=== PATIENT | male | born 1970 | race Caucasian/White ===

== ENCOUNTER 2020-06-12 11:59 | Inpatient (IN) | payer BC, OTHER ==
[~2020-06-12] VITALS: Ht 167.6 cm; Wt 78.5 kg
--- NOTE | 2020-06-12 14:10 | NUR ---
to room from lobby
[2020-06-12 14:54] LABS: BASOPHILS % (AUTO) 1 % (0-1); EOSINOPHILS % (AUTO) 0 % (1-7); LYMPHOCYTES % (AUTO) 11 % (22-44); MEAN CORPUSCULAR HEMOGLOBIN 28.3 pg (27.5-34.5); MEAN CORPUSCULAR HGB CONC 33.4 g/dL (33.2-36.2); MEAN PLATELET VOLUME 9.5 fL (7.4-10.4); MONOCYTES % (AUTO) 7 % (2-9); NEUTROPHILS % (AUTO) 81 % (42-75); PLATELET COUNT 170 x10^3/uL (130-400); RED BLOOD COUNT 6.25 x10^6/uL (4.38-5.82); RED CELL DISTRIBUTION WIDTH 13.5 % (9.4-14.8)
[2020-06-12 15:02] LABS: ALBUMIN 3.4 g/dL (3.4-5.0); ANION GAP 5 mmol/L (5-15); CALCIUM 8.8 mg/dL (8.5-10.1); CHLORIDE 103 mmol/L (98-107); CREATININE 1.39 mg/dL (0.7-1.3)
[2020-06-12 15:06] LABS: TROPONIN I < 0.015 ng/mL (0.000-0.045)
--- NOTE | 2020-06-12 15:55 | NUR ---
WITH REASSESSMENT POX TO 88% WITH MILD AMBULATION sTANDING AND WALKING TO ROOM'S DOOR. ALSO WITH MILD FEVER AGAIN PROVIDER TO ADMIT POX LOW AND CXR WORRISOME
[2020-06-12] MEDS ORDERED: AZITHROMYCIN 500 MG in SODIUM CHLORIDE 0.9% 250 ML IVPB ONE (16:00)
[2020-06-12] MEDS ORDERED: ACETAMINOPHEN 325 MG TABLET PO ONE (16:00)
[2020-06-12] MEDS ORDERED: CEFTRIAXONE PMX 1GM/50ML 50 ML IVPB ONE (16:00)
[2020-06-12] MEDS ORDERED: DEXAMETHASONE 4 MG/ML, 1ML IVPush ONE (16:00)
[2020-06-12] MEDS ORDERED: DEXAMETHASONE 4 MG/ML, 1ML ONE (16:08)
[2020-06-12] MEDS ORDERED: CEFTRIAXONE PMX 1GM/50ML 50 ML ONE (16:09)
[2020-06-12] MEDS ORDERED: ACETAMINOPHEN 325 MG TABLET ONE (16:09)
[2020-06-12] MEDS ORDERED: SODIUM CHLORIDE FLUSH 10ML SYR IVF PRN (16:30)
--- NOTE | 2020-06-12 16:57 | NUR ---
REPORT TO RACHID BERRY
--- NOTE | 2020-06-12 16:58 | NUR ---
Report received from lara Segovia.
[2020-06-12] MEDS ORDERED: BISACODYL 10 MG SUPP PR PRN (17:00)
[2020-06-12] MEDS ORDERED: ENALAPRILAT 1.25 MG/ML, 2ML IVPush PRN (17:00)
[2020-06-12] MEDS ORDERED: ONDANSETRON ODT 4 MG PO PRN (17:00)
[2020-06-12] MEDS ORDERED: GUAIFENESIN/DM 200-20MG, 10ML UDC PO PRN (17:00)
[2020-06-12] MEDS ORDERED: LABETALOL 5MG/ML, 20ML IVPush PRN (17:00)
[2020-06-12] MEDS ORDERED: CEFTRIAXONE PMX 1GM/50ML 50 ML IVPB SCH (17:00)
[2020-06-12] MEDS ORDERED: ACETAMINOPHEN 325 MG TABLET PO PRN (17:00)
[2020-06-12] MEDS ORDERED: PHARMACY MAY ADJ FOR RENAL FX MC PRN (17:00)
[2020-06-12] MEDS ORDERED: POLYETHYLENE GLYCOL 17 GM PACKET PO PRN (17:00)
[2020-06-12] MEDS ORDERED: DOCUSATE 100 MG CAPSULE PO PRN (17:00)
[2020-06-12] MEDS ORDERED: ONDANSETRON 2MG/ML, 2ML IVPush PRN (17:00)
[2020-06-12 17:23] LABS: MD SCAN
[2020-06-12 17:51] LABS: C-REACTIVE PROTEIN, QUANT 2.12 mg/dL (0.02-0.49); D-DIMER (DIC) 0.3 ug/mlFEU (0.00-0.52); PROTIME 10.3 Seconds (9.6-11.5)
[2020-06-12] MEDS ORDERED: ASCORBIC ACID 500 MG TABLET ONE (18:03)
[2020-06-12] MEDS ORDERED: HEPARIN 5,000 UNITS/ML, 1ML ONE (18:03)
[2020-06-12] MEDS: ASCORBIC ACID 500 MG TABLET PO SCH (18:05)
[2020-06-12] MEDS: HEPARIN 5,000 UNITS/ML, 1ML SQ SCH (18:06)
[2020-06-12] MEDS: SODIUM CHLORIDE 0.9% 1,000 ML IV SCH (18:06)
--- NOTE | 2020-06-12 18:21 | NUR ---
Contacted [facility] to request Rocephin ABX be updated to give 06/13 @1700 d/t medication being given already on 06/12 @1700. [facility] stated they would update Emar. pt Void 300 clear/stan. Requested diet tray-ordered. Denies additional needs at this time.
--- NOTE | 2020-06-12 18:45 | NUR ---
Meal provide Addendum: 06/12/20 at 1846 by AHAMIL meal provided.
--- NOTE | 2020-06-12 18:55 | NUR ---
Report from JAMAL Handy. This RN to assume care.
--- NOTE | 2020-06-12 19:27 | NUR ---
Patient has no complaints at this time. States his meal is dry and he doesn't want it. Provided snacks.
--- NOTE | 2020-06-12 21:36 | NUR ---
Report given to JAMAL Solomon. Patient to be transferred to room 343.
[2020-06-12 22:11] VITALS: BP 124/82
[2020-06-13 00:35] VITALS: BP 116/78
[2020-06-13] MEDS: ASCORBIC ACID 500 MG TABLET PO SCH ×4 (01:29→20:05)
[2020-06-13] MEDS: HEPARIN 5,000 UNITS/ML, 1ML SQ SCH ×3 (01:30→17:01)
[2020-06-13] MEDS: SODIUM CHLORIDE 0.9% 1,000 ML IV SCH (01:30)
[2020-06-13 06:21] LABS: CHLORIDE 109 mmol/L (98-107)
[2020-06-13 06:25] LABS: ANION GAP 4 mmol/L (5-15); CALCIUM 8.1 mg/dL (8.5-10.1); CREATININE 1.04 mg/dL (0.7-1.3)
[2020-06-13 06:32] LABS: BASOPHILS % (AUTO) 0 % (0-1); EOSINOPHILS % (AUTO) 0 % (1-7); LYMPHOCYTES % (AUTO) 14 % (22-44); MEAN CORPUSCULAR HEMOGLOBIN 28.1 pg (27.5-34.5); MEAN CORPUSCULAR HGB CONC 33.4 g/dL (33.2-36.2); MEAN PLATELET VOLUME 9.7 fL (7.4-10.4); MONOCYTES % (AUTO) 9 % (2-9); NEUTROPHILS % (AUTO) 77 % (42-75); PLATELET COUNT 173 x10^3/uL (130-400); RED BLOOD COUNT 5.62 x10^6/uL (4.38-5.82); RED CELL DISTRIBUTION WIDTH 13.4 % (9.4-14.8)
[2020-06-13 06:38] LABS: MD NO
[2020-06-13 06:41] VITALS: BP 125/80
[2020-06-13] MEDS ORDERED: DEXAMETHASONE 4 MG TABLET ONE (09:56)
[2020-06-13] MEDS: ZINC SULFATE 220 MG CAPSULE PO SCH (10:01)
[2020-06-13] MEDS: DEXAMETHASONE 1 MG TABLET PO SCH (10:03)
[2020-06-13 14:02] VITALS: BP_SYST 123
[2020-06-13] MEDS ORDERED: LOPERAMIDE 2 MG CAPSULE PO ONE (15:30)
[2020-06-13] MEDS ORDERED: LOPERAMIDE 2 MG CAPSULE PO PRN (15:30)
[2020-06-13] MEDS: CEFTRIAXONE PMX 1GM/50ML 50 ML IVPB SCH (16:58)
[2020-06-13] MEDS: AZITHROMYCIN 500 MG in SODIUM CHLORIDE 0.9% 250 ML IV SCH (17:53)
[2020-06-13] MEDS: ENOXAPARIN 40 MG/0.4 ML SQ SCH (17:53)
[2020-06-13 19:47] VITALS: BP 101/67
[2020-06-14 01:15] VITALS: BP 112/71
[2020-06-14 06:05] LABS: BASOPHILS % (AUTO) 0 % (0-1); EOSINOPHILS % (AUTO) 0 % (1-7); LYMPHOCYTES % (AUTO) 9 % (22-44); MEAN CORPUSCULAR HEMOGLOBIN 27.9 pg (27.5-34.5); MEAN CORPUSCULAR HGB CONC 32.6 g/dL (33.2-36.2); MEAN PLATELET VOLUME 9.7 fL (7.4-10.4); MONOCYTES % (AUTO) 6 % (2-9); NEUTROPHILS % (AUTO) 85 % (42-75); PLATELET COUNT 198 x10^3/uL (130-400); RED BLOOD COUNT 5.66 x10^6/uL (4.38-5.82); RED CELL DISTRIBUTION WIDTH 13.8 % (9.4-14.8)
[2020-06-14 06:22] LABS: MD NO
[2020-06-14 09:02] VITALS: BP 118/77
[2020-06-14] MEDS: ZINC SULFATE 220 MG CAPSULE PO SCH (09:34)
[2020-06-14] MEDS: ASCORBIC ACID 500 MG TABLET PO SCH ×3 (09:34→20:22)
[2020-06-14] MEDS: DEXAMETHASONE 1 MG TABLET PO SCH (09:36)
[2020-06-14 10:28] LABS: ALANINE AMINOTRANSFERASE 72 U/L (12-78); ANION GAP 5 mmol/L (5-15); BILIRUBIN,TOTAL 0.5 mg/dL (0.2-1.0); CALCIUM 8.4 mg/dL (8.5-10.1); CHLORIDE 108 mmol/L (98-107); CREATININE 1.24 mg/dL (0.7-1.3)
[2020-06-14 10:29] LABS: ALBUMIN 2.6 g/dL (3.4-5.0); ALKALINE PHOSPHATASE 105 U/L (45-117); TOTAL PROTEIN 6.8 g/dL (6.4-8.2)
[2020-06-14 12:40] VITALS: BP 118/76
[2020-06-14] MEDS: BENZONATATE 100 MG CAPSULE PO SCH ×3 (12:41→20:23)
[2020-06-14] MEDS: CEFTRIAXONE PMX 1GM/50ML 50 ML IVPB SCH (17:24)
[2020-06-14] MEDS: ENOXAPARIN 40 MG/0.4 ML SQ SCH (17:55)
[2020-06-14] MEDS: AZITHROMYCIN 500 MG in SODIUM CHLORIDE 0.9% 250 ML IV SCH (18:23)
[2020-06-14 20:05] VITALS: BP 123/80
[2020-06-15 00:40] VITALS: BP 138/82
[2020-06-15 05:23] LABS: BASOPHILS % (AUTO) 0 % (0-1); EOSINOPHILS % (AUTO) 0 % (1-7); LYMPHOCYTES % (AUTO) 10 % (22-44); MEAN CORPUSCULAR HEMOGLOBIN 28.7 pg (27.5-34.5); MEAN CORPUSCULAR HGB CONC 33.4 g/dL (33.2-36.2); MEAN PLATELET VOLUME 9.4 fL (7.4-10.4); MONOCYTES % (AUTO) 8 % (2-9); NEUTROPHILS % (AUTO) 82 % (42-75); PLATELET COUNT 231 x10^3/uL (130-400); RED BLOOD COUNT 5.47 x10^6/uL (4.38-5.82); RED CELL DISTRIBUTION WIDTH 13.9 % (9.4-14.8)
[2020-06-15 05:30] LABS: MD NO
[2020-06-15 05:39] LABS: ANION GAP 5 mmol/L (5-15); CALCIUM 8.6 mg/dL (8.5-10.1); CHLORIDE 108 mmol/L (98-107); CREATININE 1.22 mg/dL (0.7-1.3)
[2020-06-15] MEDS ORDERED: AZIT500T PO (07:51)
[2020-06-15] MEDS ORDERED: BENZ-17 PO (07:51)
[2020-06-15] MEDS ORDERED: DEXA1TAB5 PO (07:51)
[2020-06-15] MEDS ORDERED: CEFD300C37 PO (07:51)
[2020-06-15] MEDS: BENZONATATE 100 MG CAPSULE PO SCH (07:58)
[2020-06-15] MEDS: ASCORBIC ACID 500 MG TABLET PO SCH (07:58)
[2020-06-15] MEDS: ZINC SULFATE 220 MG CAPSULE PO SCH (07:58)
[2020-06-15] MEDS: DEXAMETHASONE 1 MG TABLET PO SCH (07:58)
[2020-06-15 08:01] VITALS: BP 129/84
[2020-06-15 08:51] VITALS: BP 106/70
== END 2020-06-15 11:40 | disposition home or self-care (01) | DRG 177 ==
LOC: ED 17:01 → EDIP 17:10 → 3N 22:03
PROVIDERS: ADMIT Family Medicine; ATTEND Family Medicine
DX: U07.1 COVID-19 (principal); J96.01 Acute respiratory failure with hypoxia; J15.9 Unspecified bacterial pneumonia; R00.0 Tachycardia, unspecified; I10 Essential (primary) hypertension; Z83.3 Family history of diabetes mellitus
CPT/HCPCS: 36415; 71045; 80048; 80053; 82040; 82550; 83605; 83615; 83880; 84145; 84484; 85025; 85049; 85379; 85384; 85610; 85730; 86140; 87040; 87635; 93005; 96365; 96375; 99285; G0378; J0456; J0696; J1100; J1644; J1650; J2405; J7030; J7050; U0003